=== PATIENT | male | born 1970 | race Caucasian/White ===

== ENCOUNTER 2019-03-02 13:54 | Emergency (ER) | payer OTHER, SELFPAY ==
[2019-03-02 13:57] VITALS: BP 105/67; PULSE 61; RESP 16; TEMP 35.6; O2SAT 97; BMI 28.7
--- NOTE | 2019-03-02 14:01 | CT_ITS ---
STUDY: CT BRAIN WITHOUT CONTRAST REASON FOR EXAM: Male, 49 years old. History of a 12 foot fall. RADIATION DOSAGE (If Supplied By Facility): CTDIvol = ( 60.81 ) mGy, DLP = ( 1632.44 ) mGycm TECHNIQUE: Transaxial CT imaging of the brain was performed without administration of intravenous contrast material. Individualized dose optimization techniques were used for this CT. COMPARISON: No relevant priors. FINDINGS: Questionable soft tissue laceration overlying the left frontal bone. Normal calvarium. Normal size ventricles and extra-axial spaces for the patient's age. Normal white matter tracts of the cerebral hemispheres. Tiny lacuna in the left thalamus. The age cannot be determined on this examination. Normal brainstem. Normal cerebellum. There is no intracranial hemorrhage. There are no findings of an acute ischemic infarction. Opacification of the maxillary sinuses, ethmoid sinuses and sphenoid sinus. CT/Brain/Head without Contrast IMPRESSION: Pansinusitis. Findings suggestive of a focal laceration overlying the scalp of the left frontal bone. Electronically Signed: Juan Antonio Cardenas, at 14:52 EDT , Service support ,
--- NOTE | 2019-03-02 14:01 | RAD_ITS ---
STUDY: X-RAY CHEST REASON FOR EXAM: Male, 49 years old. History of trauma. The patient is unconscious. TECHNIQUE: Single AP portable view of the chest. COMPARISON: None. FINDINGS: An endotracheal tube is in situ. The tip is at 3.7 cm proximal to the gregory. An orogastric tube is seen with the tip in the distal portion of the stomach. Minimal degree of bibasilar atelectasis. There is no demonstrated pleural abnormality. Normal size heart. Normal mediastinum and jon. Normal visualized pulmonary arteries. Normal visualized aortic arch and descending thoracic aorta. Normal visualized thoracic spine. Normal visualized ribs, clavicles, and shoulders. There is no demonstrated abnormality of the visualized soft tissue structures of the upper abdomen. RAD/Chest 1 View (Portable) IMPRESSION: Minimal degree of bibasilar atelectasis. The tip of the endotracheal tube is at 3.7 cm proximal to gregory. Electronically Signed: Juan Antonio Cardenas, at 15:08 EDT , Service support ,
--- NOTE | 2019-03-02 14:02 | RAD_ITS ---
STUDY: X-RAY - LEFT ELBOW REASON FOR EXAM: Male, 49 years old. Abrasions and swelling following a fall. TECHNIQUE: 3 view(s) of the elbow. COMPARISON: None. FINDINGS: Normal visualized humerus, radius and ulna. Normal radiocapitellar and ulnotrochlear articulations. The soft tissue structures are unremarkable. RAD/Elbow min 3 Views IMPRESSION: Normal x-ray examination of the elbow. Electronically Signed: Juan Antonio Cardenas, at 15:00 EDT , Service support ,
--- NOTE | 2019-03-02 14:02 | CT_ITS ---
STUDY: CT CERVICAL SPINE WITHOUT CONTRAST REASON FOR EXAM: Male, 49 years old. History of a 12 foot fall. RADIATION DOSAGE (If Supplied By Facility): CTDIvol = ( 26.43 ) mGy, DLP = ( 620.89 ) mGycm TECHNIQUE: High resolution transaxial imaging was performed without contrast material. Sagittal and coronal images were reconstructed. Individualized dose optimization techniques were used for this CT. COMPARISON: None FINDINGS: Normal craniovertebral junction. Normal anterior atlantoaxial articulation. Normal odontoid process. Normal cervical lordosis. Normal vertebral bodies and posterior osseous elements. C2-3: Normal endplates. Normal disc height and morphology. Normal central canal and intervertebral neuroforamina. C3-4: Normal endplates. Normal disc height and morphology. Normal central canal and intervertebral neuroforamina. C4-5: Normal endplates. Normal disc height and morphology. Normal central canal and intervertebral neuroforamina. C5-6: Normal endplates. Normal disc height and morphology. Normal central canal and intervertebral neuroforamina. C6-7: Normal endplates. Normal disc height and morphology. Normal central canal and intervertebral neuroforamina. C7-T1: Normal endplates. Normal disc height and morphology. Normal central canal and intervertebral neuroforamina. Sphenoid sinusitis. CT/Spine Cervical without Contras IMPRESSION: Normal unenhanced CT examination of the cervical spine. Electronically Signed: Juan Antonio Cardenas, at 14:53 EDT , Service support ,
--- NOTE | 2019-03-02 14:04 | ED.DCSUM_ITS ---
History of Present Illness Chief Complaint: Laceration Informant: Patient Onset: Today Context: Sudden Onset Current Severity: Moderate Maximum Severity: Moderate Narrative: The patient presents to the emergency department with head injury after fall. Patient was on a ladder. He thinks he was approximately 10 feet in the air. He lost his balance and fell. He landed on the ground. He states that he hit the ladder on the way down, landed on his left elbow, and struck his left face. He is unsure if he lost consciousness. Since then, he has had a headache. He denies other injury. The patient is otherwise been in his normal state of health. He is on no daily medication. His last tetanus was less than a year ago. Prior similar symptoms: No Recent Illness/Hospitalization: No Past Medical History - Allergies and Home Meds Allergies/Adverse Reactions: Allergies No Known Allergies Allergy (Verified 03/02/19 14:06) Primary Care Physician: [facility] Doctor,Out of [NON-STAFF] - Prior records reviewed: Yes Past Medical History: None Review of Systems General: Denies: Chills, Fever, Sweats Eyes: Denies: Visual changes - bilaterally, Diplopia ENT: Denies: Rhinorrhea, Sore throat Cardiovascular: Denies: Chest pain, Palpitations Respiratory: Denies: Dyspnea, Cough, Dyspnea on exertion Gastrointestinal: Reports: Nausea. Denies: Abdominal pain, Vomiting, Diarrhea, Melena, Hematochezia Genitourinary: Denies: Dysuria, Hematuria, Frequency Musculoskeletal: Reports: Myalgias, Arthralgias. Denies: Back pain, Extremity Pain Skin: Denies: Rash, Wounds Neurological: Reports: Headache. Denies: Weakness, Numbness Physical Exam Vital Signs/Narrative: Vital Signs Temp Pulse Resp BP Pulse Ox 03/02/19 13:57 96.1 F L 61 16 105/67 97 Inital Vital Signs reviewed: Yes General: Well nourished, Well developed, No Acute Distress Head: Normocephalic, Trauma, - - Patient has a 5 cm stellate shaped laceration above the left eyebrow. There is some bruising of the left face. There is no nasal septal hematoma. Eyes: Perrl, EOMI ENT: Moist mucous membranes, No rhinorrhea Neck: Supple, Nontender Cardiovascular: Regular rate, Regular rhythm, No murmurs Respiratory: No distress, CTA bilaterally, Chest nontender Abdomen: Soft, Nontender, Nondistended, Normal bowel sounds Back: Nontender, Normal Inspection Extremities: Nontender, No edema Skin: Normal color, No rash Neurological: Alert, Oriented x3, Cranial nerves II-XII grossly intact, Normal Strength, Normal Sensation Psychological: Normal affect, Normal Mood Diagnostic/Tx/Re-eval Chest X-Ray - ED: 1 View, Read by ED Physician, Normal, Heart, Lungs, Mediastinum, - - ET tube is in place. No pneumothorax. Clinical Impression(s) from Imaging Studies Brain CT 03/02/19 14:01 IMPRESSION: Pansinusitis. Findings suggestive of a focal laceration overlying the scalp of the left frontal bone. Electronically Signed: Juan Antonio Cardenas, at 14:52 EDT , Service support , Chest X-Ray 03/02/19 14:01 IMPRESSION: Minimal degree of bibasilar atelectasis. The tip of the endotracheal tube is at 3.7 cm proximal to gregory. Electronically Signed: Juan Antonio Cardenas, at 15:08 EDT , Service support , Cervical Spine CT 03/02/19 14:02 IMPRESSION: Normal unenhanced CT examination of the cervical spine. Abnormal Lab Results 03/02/19 03/02/19 14:10 14:10 WBC 7.5 RBC 4.70 Hgb 15.8 Hct 45.4 MCV 96.6 H MCH 33.6 H MCHC 34.8 RDW Std Deviation 43.7 RDW Coeff of Linus 12.2 Plt Count 266 MPV 9.3 Immature Gran % (Auto) 1.500 H Neut % (Auto) 52.2 Lymph % (Auto) 31.4 Perry % (Auto) 8.4 Eos % (Auto) 5.3 H Baso % (Auto) 1.2 H Absolute Neuts (auto) 3.9 Absolute Lymphs (auto) 2.36 Nucleated RBC % 0 Sodium 139 Potassium 3.7 Chloride 107 Carbon Dioxide 25.0 Anion Gap 7 BUN 6 L Creatinine 1.26 Estim Creat Clear Calc 74.83 Est GFR (MDRD) Af Amer 79 Est GFR (MDRD) Non-Af 65 BUN/Creatinine Ratio 4.8 L Glucose 127 H Calcium 8.8 Total Bilirubin 0.40 AST 46 H ALT 43 Alkaline Phosphatase 70 Total Protein 6.8 Albumin 3.3 Globulin 3.5 Albumin/Globulin Ratio 0.9 Electronically Signed: Juan Antonio Cardenas, at 14:53 EDT , Service support , Elbow X-Ray 03/02/19 14:02 IMPRESSION: Normal x-ray examination of the elbow. Electronically Signed: Juan Antonio Mccartydoc, at 15:00 EDT , Service support , - Rhythm Strip Rhythm Strip: Sinus Tach Rate: 120 Ectopy: None - Medical Decision Making The patient presents after fall from height. He was awake and alert. He was on complain of a mild frontal headache. He denies any visual change. Patient was given analgesics. He was sent over for CT. Once he got back from CT, the patient did have a witnessed, tonic, clonic seizure. This lasted about a minute and a half. He had increased swelling of the face over the eye and his eye was tense and minimally reactive. The decision was made to intubate the patient. The patient was given etomidate and rocuronium. He was intubated easily. C- collar was placed after cervical spine precautions were instituted. The patient was given Keppra and Rocephin. I did review the CT. There was no evidence of intracranial hemorrhage, but there does appear to be a skull fracture. With the patient's decompensation and head injury, he will need to be transferred to a trauma facility. The patient underwent lateral canthotomy given his proptosis. Please see the procedure note. The patient was started on propofol drip. He will be transferred to [facility] trauma service. Impression 1. Fall from ladder 2. Skull fracture 3. Proptosis of left eye with lateral canthotomy 4. Seizure 5. Intubation by ED physician - Critical Care Time Critical care time (excluding procedures): 30- minutes ED Disposition - Plan for ED Patient: Referrals: [facility],Out of [NON-STAFF] -
[2019-03-02] MEDS: Morphine 4 MG/ML Syringe IV (14:11)
[2019-03-02] MEDS: Ondansetron 4 MG/2 ML Vial IV (14:11)
[2019-03-02] MEDS: 0.9% Normal Saline 1,000 ML 1000 ML IV (14:14)
[2019-03-02 14:20] LABS: Absolute Lymphocyte Count 2.36 X10^3/uL (0.83-4.51); Absolute Neutrophil Count 3.9 X10^3/uL (2.0-7.7); Basophil# 0.09 X10^3/uL; Basophil% 1.2 % (0-1); Eosinophils% 5.3 % (0-5); Hematocrit 45.4 % (40-54); Hemoglobin 15.8 g/dL (13.0-16.5); Lymphocyte # 2.36 X10^3/ul (4.0); Lymphocyte % 31.4 % (19-41); Mean Corp Hgb Conc 34.8 g/dL (32-36); Mean Corpuscular Hgb 33.6 pg (27.0-32.0); Mean Corpuscular Volume 96.6 fL (80-94); Mean Platelet Vol. 9.3 fl (6.2-12.0); Monocyte# 0.63 X10^3/uL; Monocyte% 8.4 % (0-10); NRBC Flagged by Analyzer 0 % (0-5); Neutrophil # 3.93 X10^3/uL (2.7-7.7); Neutrophil % 52.2 % (47-70); Platelet Count 266 K/mm3 (150-450); RBC Distribution Width CV 12.2 % (11.6-14.6); RBC Distribution Width SD 43.7 fl (35.1-43.9); White Blood Count 7.5 K/mm3 (4.4-11.0)
[2019-03-02 14:34] LABS: ALB/GLOB Ratio 0.9 RATIO (0.9-2.4); AST(SGOT) 46 U/L (15-37); Alanine Aminotransfer ALT/SGPT 43 U/L (16-61); Albumin, Serum 3.3 g/dL (3.2-5.0); Alkaline Phosphatase 70 U/L (45-117); Anion Gap 7 (5-15); BUN 6 mg/dL (7-18); BUN/Creat Ratio 4.8 RATIO (10-20); Calcium,Total 8.8 mg/dL (8.5-10.1); Chloride 107 mmol/L (98-107); Creatinine, Serum 1.26 mg/dL (0.70-1.30); EST Glomerular Filtration Rate 65 mL/min (>60); Est Glom Filt Rate - Afr Amer 79 mL/min (>60); Estimated Creatinine Clearance 74.83 ml/min; Globulin 3.5 g/dL (2.2-4.2); Glucose 127 mg/dL (74-106); Potassium 3.7 mmol/L (3.5-5.1); Protein, Total 6.8 g/dL (6.4-8.2); Sodium Level 139 mmol/L (136-145)
[2019-03-02] MEDS: Rocuronium Bromide 50 MG/5 ML Vial 100 MG IV (14:42)
--- NOTE | 2019-03-02 14:43 | NURSING ---
CALLED [facility], CHILO IS TALKING TO DR VELAZQUEZ
--- NOTE | 2019-03-02 14:44 | ED.RN ---
positive color change post intubation, lung sounds bilateral
[2019-03-02] MEDS: Propofol 10MG/Ml 1,000 MG/100 ML Bottle 5.4 MG CONT INF (14:49)
[2019-03-02] MEDS: fentaNYL 100 MCG/2 ML Ampul IV (14:50)
--- NOTE | 2019-03-02 14:50 | ED.RN ---
Lateral canthotomy performed by Dr. Khadar Mansfield to release pressure in eye
--- NOTE | 2019-03-02 14:51 | ED.VISSUMM ---
- ER Visit Summary Date of Service: 03/02/19 Chief Complaint: Multiple trauma, examined for lateral canthotomy History of Present Illness: The patient is a 49 M who was initially seen by Dr. Ajith Henning. I was asked to examine if patient needed a lateral canthotomy. Physical Examination: Patient presently has a GCS of 3TP. Examination of the left eye reveals that it is proptotic. The eye is tense. The pupil is equal round and reactive. There is no subconjunctival hemorrhage noted. Test Results: Not applicable Emergency Department Course and Treatment: An emergent lateral canthotomy was performed by me to release retro-ocular hematoma. Using iris scissors blunt dissection was undertaken with release of retro-ocular hematoma. The eye is no longer proptotic nor tense. Treatment Plan: Care to be continued by Dr. Mauricio Henning Disposition: [facility] to trauma center Impression: Retro-ocular hematoma status post lateral canthotomy This note was generated with [employer] dictation software. It may contain incorrect words, spelling, and punctuation that were not noted in review of the chart prior to signing ED Disposition - Plan for ED Patient: Referrals: [facility] Doctor,Out of [NON-STAFF] -
[2019-03-02 14:55] VITALS: BP 243/115; PULSE 136; RESP 12; O2SAT 100
[2019-03-02] MEDS: Midazolam 5 MG/ML Syringe 4 MG IV (14:55)
[2019-03-02] MEDS: levETIRAcetam IV 1,000 MG/100 ML BAG 400 MG IV (14:56)
[2019-03-02 15:00] VITALS: BP 161/84; PULSE 128; RESP 12; O2SAT 100
--- NOTE | 2019-03-02 15:10 | ED.RN ---
propofol continued via [facility] during transport
--- NOTE | 2019-03-02 15:15 | ED.RN ---
2 sets of keys and medical card given to . pt transferred [facility]
[2019-03-02] MEDS: Ceftriaxone 1 GM/50 ML BAG IV (15:35)
== END 2019-03-02 15:15 | disposition short-term general hospital (02) ==
PROVIDERS: Emergency Provider Emergency Medicine
DX: S02.0XXA Fracture of vault of skull, initial encounter for closed fracture (principal); S01.112A Laceration without foreign body of left eyelid and periocular area, initial encounter; H05.20 Unspecified exophthalmos; R56.9 Unspecified convulsions; W11.XXXA Fall on and from ladder, initial encounter; Y93.9 Activity, unspecified; Y92.9 Unspecified place or not applicable; Y99.9 Unspecified external cause status
CPT/HCPCS: 67715; 31500; 51702; 70450; 71045; 72125; 73080; 80053; 85025; 96365; 96367; 96375; 99251; 99285; J7030; J7040; A4216; G0463; J2405